=== PATIENT | male | born 1965 | race African-American/Black ===

== ENCOUNTER 2018-09-24 13:33 | Emergency (ER) | payer MEDICAID ==
[~2018-09-24] VITALS: Ht 177.8 cm; Wt 104.0 kg
[2018-09-24] MEDS ORDERED: KETOROLAC 60MG/2ML VIAL IM ONE (16:15)
[2018-09-24 17:25] VITALS: BP 135/75
== END 2018-09-24 17:29 | disposition home or self-care (01) ==
LOC: ER 13:33
DX: M54.5 Low back pain (principal); E66.9 Obesity, unspecified; Z68.32 Body mass index [BMI] 32.0-32.9, adult; Z98.890 Other specified postprocedural states; V43.52XA Car driver injured in collision with other type car in traffic accident, initial encounter; Y93.89 Activity, other specified; Y92.488 Other paved roadways as the place of occurrence of the external cause
CPT/HCPCS: 72100; 96372; 99283; J1885

== ENCOUNTER 2019-11-18 09:24 | Emergency (ER) | payer MEDICAID ==
[~2019-11-18] VITALS: Ht 177.8 cm; Wt 90.0 kg
[2019-11-18 12:32] LABS: BASOPHILS % 0.7 % (0.0-2.0); EOSINOPHILS % 0.4 % (0.0-5.0); HEMOGLOBIN. 15.4 g/dL (14.0-18.0); LYMPHOCYTES % 21.3 % (20.0-50.0); MEAN CORPUSCULAR HEMOGLOBIN 31.1 pg (28.0-32.0); MEAN CORPUSCULAR VOLUME 90.9 fL (80.0-94.0); MEAN PLATELET VOLUME 7.9 fl (7.4-10.4); MONOCYTES % 4.4 % (2.0-8.0); NEUTROPHILS % 73.2 % (40.0-76.0); PLATELET 416 x1000/uL (130-400); RED BLOOD CELL COUNT 4.96 mill/uL (4.7-6.1); RED CELL DISTRIBUTION WIDTH 14.6 % (11.6-14.6)
[2019-11-18 12:38] LABS: CLARITY URINE CLEAR (CLEAR); COLOR URINE YELLOW (YELLOW); KETONES URINE TRACE (NEGATIVE); LEUKOCYTE ESTERASE URINE NEGATIVE (NEGATIVE); NITRITE URINE NEGATIVE (NEGATIVE); OCCULT BLOOD URINE 1+ (NEGATIVE); PH URINE 5.5 (4.5-8.0); PROTEIN URINE NEGATIVE (NEGATIVE); SPECIFIC GRAVITY URINE 1.028 (1.005-1.030)
[2019-11-18 12:43] LABS: INR 0.9; PROTHROMBIN TIME 10.2 sec (9.6-11.0)
[2019-11-18 12:44] LABS: CHLORIDE 106 mEq/L (98-107)
[2019-11-18 18:07] VITALS: BP 118/72
[2019-11-23 15:06] LABS: *HIV-1 RNA BY PCR 50 copies/mL (.)
== END 2019-11-18 18:15 | disposition left against medical advice (07) ==
LOC: EEVIPCON 09:24 → ER 09:24 → EDBEDREQTM 11:36 → EDBEDREQ 11:36 → EDBEDREQSVC 11:36 → EDBEDREQTM 12:42 → EDBEDREQ 12:42 → CANBEDREQ 18:14 → ER 18:15
DX: R51 Headache (principal); R50.9 Fever, unspecified
CPT/HCPCS: 36415; 71045; 80053; 81003; 83605; 84145; 84484; 85025; 87536; 93005; 99285